=== PATIENT | female | born 1925 | race Caucasian/White ===

== ENCOUNTER 2016-12-13 16:21 | Inpatient (IN) | payer MEDICARE ==
[2016-12-13] VITALS (8 sets, daily range): BP systolic 117–219; BP diastolic 85–101; PULSE 75–92; RESP 16–20; TEMP 98.1–98.2; O2SAT 90–100
[~2016-12-13] VITALS: Ht 152.4 cm; Wt 58.9 kg
[~2016-12-13 16:21] MED LIST: ADVAI100I PO; ALBU1AER INH; ASPI81 PO; CELE200C PO; FERR325T PO; OMEP20CA5 PO; TAB-TAB PO
--- NOTE | 2016-12-13 16:51 | PD ---
HPI Chief Complaint: Respiratory Symptoms Time Seen by Provider: 16:38 Travel History International Travel<30 days: No Contact w/Intl Traveler<30days: No Traveled to known affect area: No History of Present Illness HPI This 89-year-old female presents with cough and shortness of breath. She has a history of COPD she has never smoked. She says that the last week she's been having increasing shortness of breath. It seemed to start with a cold which went to her lungs. She is on Advair and Proventil for his COPD. She has never been admitted to the hospital for her COPD. She is not on oxygen. She is not aware of any fever. She has no history of heart disease. She has really not been coughing much up feels very congested. She is not having any chest pain. She had a left hip replacement in 2008. She has chronic problems with her right leg and has to use a wheelchair. She is unable to walk PFSH Past Medical History Arthritis: Yes Asthma: Yes (as a child) Blood Disorders: No Cancer: No Cardiovascular Problems: No Diminished Hearing: No Endocrine: No GERD: Yes Genitourinary: No Hiatal Hernia: Yes Neurologic: No Psychiatric: No Reproductive: No Immunizations Current: Yes Past Surgical History Eye Surgery: Yes (anitra cataract sx retinal surgeries anitra) Other Surgery: Yes Social History Alcohol Use: Yes (occasional) Tobacco Use: No Substance Use: No Allergies-Medications (Allergen,Severity, Reaction): Coded Allergies: No Known Allergies (Verified , 12/13/16) Reported Meds & Prescriptions Reported Meds & Active Scripts Active Reported Proair Hfa 8.5 GM Inh (Albuterol Sulfate) 90 Mcg/Act Aer 1 Puff INH Q4H PRN 108 mcg/actuation Advair Diskus Inh (Fluticasone-Salmeterol Inh) 100-50 Mcg/Blist Aer 1 Puff INH BID Rinse mouth after use. Theragran-M (Multiple Vitamins W/ Minerals) 1 Tab 1 Tab PO DAILY Ferrous Sulfate 325 Mg Tab 325 Mg PO DAILY Celebrex (Celecoxib) 200 Mg Cap 200 Mg PO BID Omeprazole 20 Mg Tab 20 Mg PO DAILY Review of Systems General / Constitutional: No: Fever, Chills Eyes: No: Diploplia, Blurred Vision HENT: No: Vertigo Cardiovascular: Positive: Edema, No: Chest Pain or Discomfort, Palpitations Respiratory: Positive: Cough, Shortness of Breath, Wheezing Gastrointestinal: No: Vomiting, Diarrhea Genitourinary: No: Urgency, Frequency Musculoskeletal: Positive: Arthralgias, No: Myalgias Skin: No Rash Physical Exam Narrative GENERAL: Elderly female. She is tachypneic and in mild respiratory distress SKIN: Warm and dry. HEAD: Atraumatic. Normocephalic. EYES: Pupils equal and round. No scleral icterus. No injection or drainage. ENT: No nasal bleeding or discharge. Mucous membranes pink and moist. NECK: Trachea midline. No JVD. CARDIOVASCULAR: Regular rate and rhythm. No murmur appreciated. RESPIRATORY: There is accessory muscle use. There are bilateral expiratory rhonchi and rales. GASTROINTESTINAL: Abdomen soft, non-tender, nondistended. Hepatic and splenic margins not palpable. MUSCULOSKELETAL: No obvious deformities. No clubbing. No cyanosis. Trace edema bilaterally. SHe does have kyphoscoliosis NEUROLOGICAL: Awake and alert. No obvious cranial nerve deficits. Motor grossly within normal limits. Normal speech. PSYCHIATRIC: Appropriate mood and affect; insight and judgment normal. Data Data Last Documented VS Vital Signs Date Time Temp Pulse Resp B/P Pulse Ox O2 Delivery O2 Flow Rate FiO2 12/13/16 17:09 95 Nasal Cannula 2.00 12/13/16 16:35 98.1 79 18 219/101 Orders Complete Blood Count With Diff (12/13/16 16:46) Basic Metabolic Panel (Bmp) (12/13/16 16:46) B-Type Natriuretic Peptide (12/13/16 16:46) Magnesium (Mg) (12/13/16 16:46) Troponin I (12/13/16 16:46) Urinalysis - C+S If Indicated (12/13/16 16:46) Influenzae A/B Antigen (12/13/16 16:46) Blood Culture (12/13/16 16:46) Iv Access Insert/Monitor (12/13/16 16:46) Electrocardiogram (12/13/16 16:46) Ecg Monitoring (12/13/16 16:46) Oximetry (12/13/16 16:46) Oxygen Administration (12/13/16 16:46) Chest, Single Ap (12/13/16 16:46) Sodium Chloride 0.9% Flush (Ns Flush) (12/13/16 17:00) Methylprednisolone So Succ Inj (Solumedr (12/13/16 17:00) Albuterol-Ipratropium Neb (Duoneb Neb) (12/13/16 17:00) Labs Laboratory Tests Test 12/13/16 17:15 White Blood Count 9.3 TH/MM3 Red Blood Count 5.00 MIL/MM3 Hemoglobin 14.9 GM/DL Hematocrit 44.8 % Mean Corpuscular Volume 89.6 FL Mean Corpuscular Hemoglobin 29.8 PG Mean Corpuscular Hemoglobin 33.2 % Concent Red Cell Distribution Width 13.5 % Platelet Count 176 TH/MM3 Mean Platelet Volume 8.2 FL Neutrophils (%) (Auto) 85.2 % Lymphocytes (%) (Auto) 6.2 % Monocytes (%) (Auto) 7.9 % Eosinophils (%) (Auto) 0.2 % Basophils (%) (Auto) 0.5 % Neutrophils # (Auto) 8.0 TH/MM3 Lymphocytes # (Auto) 0.6 TH/MM3 Monocytes # (Auto) 0.7 TH/MM3 Eosinophils # (Auto) 0.0 TH/MM3 Basophils # (Auto) 0.0 TH/MM3 CBC Comment DIFF FINAL Differential Comment MDM Medical Decision Making Medical Screen Exam Complete: Yes Emergency Medical Condition: Yes Medical Record Reviewed: Yes Differential Diagnosis Differential includes pneumonia, CHF, COPD Narrative Course Chest x-ray is negative for pneumonia and CHF. She has been given 3 nebulizer treatments and Solu-Medrol. She feels a bit better but remains tachypneic with bilateral wheezes and rhonchi. Rocephin has been given. She remained short of breath and will need admission Diagnosis Primary Impression: COPD exacerbation Admitting Information Admitting Physician Requests: Admit Jam Sharp MD Dec 13, 2016 16:51
[2016-12-13] MEDS ORDERED: ADVA100A INH (16:57)
[2016-12-13] MEDS ORDERED: CELE200C PO (16:57)
[2016-12-13] MEDS ORDERED: OMEP20TA PO (16:57)
[2016-12-13] MEDS ORDERED: THERTAB27 PO (16:57)
[2016-12-13] MEDS ORDERED: ALBUAER3 INH (16:57)
[2016-12-13] MEDS ORDERED: FERR325T PO (16:57)
[2016-12-13] MEDS ORDERED: SODIUM CHLORIDE 0.9% FLUSH 5 ML FLUSH IVF PRN (17:00)
[2016-12-13] MEDS ORDERED: methylPREDNISolone SOD SUCC 125 MG/2 ML VIAL IVP ONE (17:00)
[2016-12-13] MEDS: RESP: ALBUTEROL 2.5 MG/IPRATROPIUM 0.5 MG NEB (SCH) INH ×2 (17:02→17:03)
--- NOTE | 2016-12-13 17:31 | RADHPO ---
EXAM DATE/TIME: 12/13/2016 17:05 [facility] COMPARISON: No previous studies available for comparison. INDICATIONS : Cough and congestion. MEDICAL HISTORY : Chronic obstructive pulmonary disease. SURGICAL HISTORY : None. ENCOUNTER: Initial ACUITY: 3 days PAIN SCORE: 0/10 LOCATION: Bilateral chest FINDINGS: A single view of the chest demonstrates moderate size hiatal hernia. No focal consolidation or signif icant effusion. Calcified granuloma right lung base. Advanced arthropathy in the shoulders. CONCLUSION: 1. No acute findings. Moderate hiatal hernia. Remote granulomatous disease. Guy Chua MD on December 13, 2016 at 17:29 Board Certified Radiologist. This report was verified electronically.
[2016-12-13 17:42] LABS: BASOPHIL % 0.5 % (0.0-2.0); EOSINOPHIL % 0.2 % (0.0-4.0); HEMATOCRIT 44.8 % (35.0-46.0); LYMPH % 6.2 % (9.0-44.0); LYMPHOCYTE # 0.6 TH/MM3 (1.0-4.8); MEAN CELL VOLUME 89.6 FL (80.0-100.0); MEAN CORPUSCULAR HEMOGLOBIN 29.8 PG (27.0-34.0); MEAN CORPUSCULAR HGB CONC 33.2 % (32.0-36.0); MONO % 7.9 % (0.0-8.0); NEUT % 85.2 % (16.0-70.0); PLATELET COUNT 176 TH/MM3 (150-450); RED CELL DISTRIBUTION WIDTH 13.5 % (11.6-17.2); WHITE BLOOD COUNT 9.3 TH/MM3 (4.0-11.0)
[2016-12-13 17:45] LABS: HEMO FLAGS DIFF FINAL
[2016-12-13] MEDS ORDERED: cefTRIAXone INJ 1,000 MG in SODIUM CHLORIDE 0.9% INJ 100 ML IV ONE (18:00)
[2016-12-13 18:14] LABS: BLOOD, URINE NEG (NEG); GLUCOSE,URINE NEG (NEG); KETONE, URINE 15 mg/dL (NEG); NITRITE,URINE NEG (NEG); PH, URINE 6.5 (5.0-8.5)
[2016-12-13 18:17] LABS: METHOD OF COLLECTION CATH; URINE COLOR YELLOW (YELLW/STRAW)
[2016-12-13 18:20] LABS: MUCUS URINE OCC /lpf (OCC)
[2016-12-13 18:21] LABS: RBC, URINE 0-3 /hpf (0-3)
[2016-12-13 18:26] LABS: COMMENT (UR) CULT NOT INDICATED; CULTURE IF INDICATED CULT NOT INDICATED
--- NOTE | 2016-12-13 18:28 | HHI.HP ---
HPI Service [facility] Primary Care Physician Jl Bond M.D. Admission Diagnosis COPD EXACERBATION Diagnoses: Travel History International Travel<30 Days: No Contact w/Intl Traveler <30 Da: No Traveled to Known Affected Are: No History of Present Illness This is a very pleasant 89-year-old female patient of Dr. Bond. She has brought into the emergency department at [facility]. She has a complaint of 5 days of shortness of breath, cough, wheezing, clear sputum but no fever. No chest pain. 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 She is alert and oriented. She is very sharp. She can recite the alphabet backwards without problems. She did that during this interview. She was seen in the presence of her nephew. She has a history of COPD but not on home oxygen. She uses Advair and Proventil. She denies any history of heart disease. No history of smoking. She does have a hiatal hernia and acid reflux. She denies dysphagia or choking. Review of Systems Other As above. 10 systems were reviewed and otherwise negative Past Family Social History Past Medical History Asthma Bilateral cataracts Hiatal hernia Acid reflux disease Osteoarthritis Rheumatoid arthritis Bedridden status Past Surgical History Bilateral cataract surgery Bilateral lens implant Left total hip replacement Reported Medications Reported Meds & Active Scripts Active Reported Proair Hfa 8.5 GM Inh (Albuterol Sulfate) 90 Mcg/Act Aer 1 Puff INH Q4H PRN 108 mcg/actuation Advair Diskus Inh (Fluticasone-Salmeterol Inh) 100-50 Mcg/Blist Aer 1 Puff INH BID Rinse mouth after use. Theragran-M (Multiple Vitamins W/ Minerals) 1 Tab 1 Tab PO DAILY Ferrous Sulfate 325 Mg Tab 325 Mg PO DAILY Celebrex (Celecoxib) 200 Mg Cap 200 Mg PO BID Omeprazole 20 Mg Tab 20 Mg PO DAILY Allergies: Coded Allergies: No Known Allergies (Verified , 12/13/16) Family History Reviewed but not contributory Social History No smoking, no excessive alcohol, no illicit drug use Physical Exam Vital Signs Vital Signs Date Time Temp Pulse Resp B/P Pulse Ox O2 Delivery O2 Flow Rate FiO2 12/13/16 17:09 95 Nasal Cannula 2.00 12/13/16 16:54 90 Room Air 12/13/16 16:54 92 Nasal Cannula 2 12/13/16 16:35 98.1 79 18 219/101 90 Physical Exam GENERAL: This is a very pleasant, elderly, well-nourished, well-developed patient, in no apparent distress, but repeatedly coughing and audibly wheezing. SKIN: No rashes, ecchymoses or lesions. Cool and dry. HEAD: Atraumatic. Normocephalic. No temporal or scalp tenderness. EYES: Pupils equal round and reactive. Extraocular motions intact. No scleral icterus. No injection or drainage. ENT: Nose without bleeding, purulent drainage or septal hematoma. Throat without erythema, tonsillar hypertrophy or exudate. Uvula midline. Airway patent. NECK: Trachea midline. No JVD or lymphadenopathy. Supple, nontender, no meningeal signs. CARDIOVASCULAR: Regular rate and rhythm without gallops, or rubs. Soft murmur present RESPIRATORY: Bilateral wheezes and crackles GASTROINTESTINAL: Abdomen soft, non-tender, nondistended. No hepato-splenomegaly , or palpable masses. No guarding. MUSCULOSKELETAL: Bony enlargement in both things. Arthritis changes in her fingers. Extremities without clubbing, cyanosis, or edema. No joint tenderness , effusion, or edema noted. No calf tenderness. NEUROLOGICAL: Awake and alert. Cranial nerves II through XII intact.. Normal speech. Laboratory Laboratory Tests Test 12/13/16 12/13/16 17:15 17:45 White Blood Count 9.3 Red Blood Count 5.00 Hemoglobin 14.9 Hematocrit 44.8 Mean Corpuscular Volume 89.6 Mean Corpuscular Hemoglobin 29.8 Mean Corpuscular Hemoglobin 33.2 Concent Red Cell Distribution Width 13.5 Platelet Count 176 Mean Platelet Volume 8.2 Neutrophils (%) (Auto) 85.2 Lymphocytes (%) (Auto) 6.2 Monocytes (%) (Auto) 7.9 Eosinophils (%) (Auto) 0.2 Basophils (%) (Auto) 0.5 Neutrophils # (Auto) 8.0 Lymphocytes # (Auto) 0.6 Monocytes # (Auto) 0.7 Eosinophils # (Auto) 0.0 Basophils # (Auto) 0.0 CBC Comment DIFF FINAL Differential Comment Urine Collection Type CATH Urine Color YELLOW Urine Turbidity CLEAR Urine pH 6.5 Urine Specific [place] 1.024 Urine Protein TRACE Urine Glucose (UA) NEG Urine Ketones 15 Urine Occult Blood NEG Urine Nitrite NEG Urine Bilirubin NEG Urine Leukocyte Esterase NEG Urine RBC 0-3 Urine WBC 3-5 Urine WBC Clumps Urine Mucus OCC Microscopic Urinalysis Comment CULT NOT INDICATED Date/Time Procedure Status Source Growth 12/13/16 17:45 Influenza Types A,B Antigen (SAÚL) - Final Complete Nasal Aspirate NEGATIVE FOR FLU A AND B ANTIGEN.... 12/13/16 17:15 Aerobic Blood Culture Received Blood Peripheral Pending 12/13/16 17:15 Anaerobic Blood Culture Received Blood Peripheral Pending Result Diagram: 12/13/16 1715 Imaging Last Impressions Chest X-Ray 12/13/16 1646 Signed Impressions: Service Date/Time: December 17:05 - CONCLUSION: 1. No acute findings. Moderate hiatal hernia. Remote granulomatous disease. Guy Chua MD Assessment and Plan Assessment and Plan Assessment COPD exacerbation Frequent cough Clear sputum Hiatal hernia Acid reflux Management The patient is being admitted to telemetry Supplemental oxygen IV steroids IV antibiotics Nebulizer treatment, scheduled and when necessary Continue home medications DVT prophylaxis Discussed with patient and family Discussed with emergency physician Dr. Huynh 45 minutes Uriel Baker MD Dec 13, 2016 18:28
[2016-12-13] MEDS ORDERED: ONDANSETRON HCL 4 MG/2 ML VIAL IVP PRN (18:30)
[2016-12-13] MEDS ORDERED: ACETAMINOPHEN 325 MG TAB PO PRN (18:30)
[2016-12-13] MEDS ORDERED: NALOXONE HCL 0.4 MG/ML AMP IV PRN (18:30)
[2016-12-13] MEDS ORDERED: SODIUM CHLORIDE 0.9% FLUSH 5 ML FLUSH FLUSH PRN (18:30)
[2016-12-13] MEDS ORDERED: ALBUTEROL SULFATE 90 MCG/ACT HFA 8 GM INHALER INH PRN (18:30)
[2016-12-13 18:55] LABS: CHLORIDE 97 MEQ/L (98-107); POTASSIUM 3.9 MEQ/L (3.5-5.1); SODIUM (NA) 136 MEQ/L (136-145)
[2016-12-13 18:58] LABS: ANION GAP 8 MEQ/L (5-15); BICARBONATE 30.8 MEQ/L (21.0-32.0); MAGNESIUM 1.7 MG/DL (1.5-2.5)
[2016-12-13 18:59] LABS: BLOOD UREA NITROGEN 11 MG/DL (7-18)
[2016-12-13 19:02] LABS: GLOMERULAR FILTRATION RATE 122 ML/MIN (>89)
[2016-12-13] MEDS: CELECOXIB 200 MG CAP PO SCH (21:00)
[2016-12-13] MEDS ORDERED: RESP: ALBUTEROL 2.5 MG/IPRATROPIUM 0.5 MG NEB (PRN) NEB (22:30)
[2016-12-13] MEDS ORDERED: guaiFENesin SOLUTION 200 MG/10 ML CUP PO PRN (22:30)
[2016-12-13] MEDS ORDERED: ENALAPRILAT 1.25 MG/ML VIAL IV PUSH PRN (23:30)
[2016-12-14] VITALS (8 sets, daily range): BP systolic 138–189; BP diastolic 74–96; PULSE 71–97; RESP 16–20; TEMP 97.8–98.4; O2SAT 91–95
[2016-12-14] MEDS: BUDESONIDE-FORMOTEROL 80/4.5 MCG INHALER INH SCH ×3 (00:06→21:15)
[2016-12-14] MEDS: SODIUM CHLORIDE 0.9% FLUSH 5 ML FLUSH FLUSH SCH ×3 (00:07→21:15)
[2016-12-14] MEDS: methylPREDNISolone SOD SUCC 125 MG/2 ML VIAL IV SCH ×2 (00:07→05:28)
[2016-12-14] MEDS: HEPARIN SODIUM - SQ 10,000 UNITS/ML VIAL SQ SCH ×3 (00:20→21:15)
[2016-12-14] MEDS: RESP: ALBUTEROL 2.5 MG/IPRATROPIUM 0.5 MG NEB (SCH) NEB ×4 (07:17→19:52)
[2016-12-14] MEDS ORDERED: PANTOPRAZOLE SOD 20 MG DELAYED RELEASE TAB PO SCH (09:00)
[2016-12-14] MEDS: FERROUS SULFATE 325 MG (65 MG ELEMENTAL IRON) TAB PO SCH (09:50)
[2016-12-14] MEDS: CELECOXIB 200 MG CAP PO SCH ×2 (09:50→21:00)
[2016-12-14] MEDS: MULTIVITAMINS/MINERALS THERAPEUTIC TAB PO SCH (09:51)
[2016-12-14] MEDS: AZITHROMYCIN 250 MG TAB PO SCH (09:51)
--- NOTE | 2016-12-14 11:24 | HHI.PR ---
Subjective Interval History Alert, oriented, verbal, still some cough however this has improved, no chest pain Review of Systems Constitutional Constitutional Remarks As above, 10 systems reviewed otherwise negative Vitals/Results Intake & Output 12/13/16 12/13/16 12/14/16 15:00 23:00 07:00 Intake Total 350 ml 680 ml Output Total 150 ml Balance 200 ml 680 ml Intake Oral 250 ml 680 ml IV Total 100 ml Output Urine Total 150 ml # Voids 1 3 # Bowel Movements 0 Vital Signs Vital Signs Date Time Temp Pulse Resp B/P Pulse Ox O2 Delivery O2 Flow Rate FiO2 12/14/16 08:00 97.8 88 18 152/76 93 12/14/16 07:17 92 Nasal Cannula 2.00 12/14/16 04:00 98.0 71 16 138/74 95 12/14/16 00:00 98.2 92 20 158/96 91 140/76 12/13/16 23:46 95 Nasal Cannula 2.00 12/13/16 22:46 82 16 176/92 100 Nasal Cannula 2 12/13/16 22:20 98.2 92 20 158/96 96 12/13/16 20:10 78 16 117/95 100 Nasal Cannula 2 12/13/16 19:10 75 18 189/85 91 Room Air 12/13/16 17:09 95 Nasal Cannula 2.00 12/13/16 16:54 90 Room Air 12/13/16 16:54 92 Nasal Cannula 2 12/13/16 16:35 98.1 79 18 219/101 90 CBC/BMP: 12/13/16 1715 12/13/16 1820 Lab Results Laboratory Tests Test 12/13/16 12/13/16 12/13/16 17:15 17:45 18:20 White Blood Count 9.3 TH/MM3 Red Blood Count 5.00 MIL/MM3 Hemoglobin 14.9 GM/DL Hematocrit 44.8 % Mean Corpuscular Volume 89.6 FL Mean Corpuscular Hemoglobin 29.8 PG Mean Corpuscular Hemoglobin 33.2 % Concent Red Cell Distribution Width 13.5 % Platelet Count 176 TH/MM3 Mean Platelet Volume 8.2 FL Neutrophils (%) (Auto) 85.2 % Lymphocytes (%) (Auto) 6.2 % Monocytes (%) (Auto) 7.9 % Eosinophils (%) (Auto) 0.2 % Basophils (%) (Auto) 0.5 % Neutrophils # (Auto) 8.0 TH/MM3 Lymphocytes # (Auto) 0.6 TH/MM3 Monocytes # (Auto) 0.7 TH/MM3 Eosinophils # (Auto) 0.0 TH/MM3 Basophils # (Auto) 0.0 TH/MM3 CBC Comment DIFF FINAL Differential Comment B-Type Natriuretic Peptide 56 PG/ML Urine Collection Type CATH Urine Color YELLOW Urine Turbidity CLEAR Urine pH 6.5 Urine Specific [place] 1.024 Urine Protein TRACE mg/dL Urine Glucose (UA) NEG mg/dL Urine Ketones 15 mg/dL Urine Occult Blood NEG Urine Nitrite NEG Urine Bilirubin NEG Urine Leukocyte Esterase NEG Urine RBC 0-3 /hpf Urine WBC 3-5 /hpf Urine WBC Clumps Urine Mucus OCC /lpf Microscopic Urinalysis Comment CULT NOT INDICATED Sodium Level 136 MEQ/L Potassium Level 3.9 MEQ/L Chloride Level 97 MEQ/L Carbon Dioxide Level 30.8 MEQ/L Anion Gap 8 MEQ/L Blood Urea Nitrogen 11 MG/DL Creatinine 0.48 MG/DL Estimat Glomerular Filtration 122 ML/MIN Rate Random Glucose 114 MG/DL Calcium Level 8.4 MG/DL Magnesium Level 1.7 MG/DL Troponin I LESS THAN 0.02 NG/ML Microbiology Microbiology 12/13/16 Aerobic Blood Culture, Received Pending 12/13/16 Anaerobic Blood Culture, Received Pending 12/13/16 Aerobic Blood Culture, Received Pending 12/13/16 Anaerobic Blood Culture, Received Pending 12/13/16 Influenza Types A,B Antigen (SAÚL) - Final, Complete NEGATIVE FOR FLU A AND B ANTIGEN.... Physical Exam General General Appearance: Well Developed, Well Nourished, Comfortable Eyes Eye Exam: Pupils Reactive Ears & Nose Ears & Nose Exam: Nasal Mucosa [place] Throat Throat Exam: Oral Mucosa [place] & Moist Neck Neck Exam: Trachea Midline Pulmonary Resp Exam: Crackles, Rhonchi Cardiology CV Exam: Regular, Murmur Gastrointestinal/Abdomen GI Exam: Non-Tender, Bowel Sounds Present Musculoskeletal MS Exam: Normal Tone MS Remarks Manifestations of advanced osteo and rheumatoid arthritis Integumentary Skin Exam: Intact Neurologic Neuro Exam: Awake, Oriented, Speech Clear, Moving All Extremities Psychiatric Psych Exam: Appropriate Responses VTE Prophylaxis VTE Prophylaxis Meds: Heparin Assessment/Plan Assessment/Plan Assessment COPD exacerbation, still with significant wheezing Frequent cough Clear sputum Hiatal hernia Acid reflux Management telemetry Supplemental oxygen IV steroids, slowly taper Proton pump inhibitor IV antibiotics Nebulizer treatment, scheduled and when necessary DVT prophylaxis Discussed with patient and family at her bedside 35 minutes Uriel Baker MD Dec 14, 2016 11:24
[2016-12-14] MEDS: methylPREDNISolone SOD SUCC 40 MG/1 ML VIAL IV SCH ×2 (13:09→17:41)
[2016-12-14] MEDS: cefTRIAXone INJ 1,000 MG in SODIUM CHLORIDE 0.9% INJ 100 ML IV SCH (17:41)
--- NOTE | 2016-12-14 19:48 | EKG ---
Date Performed: 12/13/2016 Time Performed: 16:57:46 PTAGE: 89 years EKG: Sinus rhythm Possible left atrial abnormality Possible anteroseptal infarct - age undetermined Abnormal ECG PREVIOUS TRACING : 11/24/2008 14.40 Compared to prior tracing no significant change DOCTOR: Kael Sauer Interpretating Date/Time 12/14/2016 19:48:32
[2016-12-14] MEDS: DOCUSATE SODIUM 100 MG CAP PO SCH (21:00)
[2016-12-15] VITALS (9 sets, daily range): BP systolic 140–174; BP diastolic 55–87; PULSE 67–89; RESP 18–24; TEMP 97.8–98.8; O2SAT 90–93
[2016-12-15] MEDS: methylPREDNISolone SOD SUCC 40 MG/1 ML VIAL IV SCH ×4 (00:30→17:26)
[2016-12-15] MEDS: RESP: ALBUTEROL 2.5 MG/IPRATROPIUM 0.5 MG NEB (SCH) NEB ×4 (07:38→19:29)
[2016-12-15] MEDS: FERROUS SULFATE 325 MG (65 MG ELEMENTAL IRON) TAB PO SCH (08:03)
[2016-12-15] MEDS: DOCUSATE SODIUM 100 MG CAP PO SCH ×2 (08:03→22:52)
[2016-12-15] MEDS: MULTIVITAMINS/MINERALS THERAPEUTIC TAB PO SCH (08:03)
[2016-12-15] MEDS: AZITHROMYCIN 250 MG TAB PO SCH (08:04)
[2016-12-15] MEDS: PANTOPRAZOLE SOD 40 MG DELAYED RELEASE TAB PO SCH (08:04)
[2016-12-15] MEDS: CELECOXIB 200 MG CAP PO SCH ×2 (08:04→22:52)
[2016-12-15] MEDS: HEPARIN SODIUM - SQ 10,000 UNITS/ML VIAL SQ SCH ×2 (08:05→22:51)
[2016-12-15] MEDS: SODIUM CHLORIDE 0.9% FLUSH 5 ML FLUSH FLUSH SCH ×2 (08:06→21:00)
[2016-12-15] MEDS: BUDESONIDE-FORMOTEROL 80/4.5 MCG INHALER INH SCH ×2 (08:06→22:51)
--- NOTE | 2016-12-15 09:10 | HHI.PR ---
Subjective Remarks 89yr old female seen and examined today. Still with SOB/wheezing. Objective Objective Results - Vital Signs Date Time Temp Pulse Resp B/P Pulse Ox O2 Delivery O2 Flow Rate FiO2 12/15/16 08:00 98.8 67 20 174/79 93 12/15/16 07:40 92 Nasal Cannula 2.00 12/15/16 04:38 67 12/15/16 04:00 98.1 89 20 155/85 92 12/15/16 00:31 98.7 82 18 140/87 93 12/14/16 20:00 98.4 91 20 152/89 91 12/14/16 19:50 93 Nasal Cannula 2.00 12/14/16 16:00 98.4 97 18 189/88 94 12/14/16 12:00 98.0 84 18 144/76 93 I/O 12/14/16 12/14/16 12/14/16 12/15/16 12/15/16 12/15/16 07:00 15:00 23:00 07:00 15:00 23:00 Intake Total 680 ml 480 ml Output Total 250 ml Balance 680 ml 480 ml -250 ml Intake Oral 680 ml 480 ml Output Urine Total 250 ml # Voids 3 4 2 # Bowel Movements 0 0 Result Diagram: 12/13/16 1715 12/13/16 1820 Imaging Last Impressions Chest X-Ray 12/13/16 1646 Signed Impressions: Service Date/Time: December 17:05 - CONCLUSION: 1. No acute findings. Moderate hiatal hernia. Remote granulomatous disease. Guy Chua MD Other Results Date/Time Procedure Status Source Growth 12/13/16 17:45 Influenza Types A,B Antigen (SAÚL) - Final Complete Nasal Aspirate NEGATIVE FOR FLU A AND B ANTIGEN.... 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 She is alert and awake. HEAD: Normocephalic without any lesion or mass noted. . EYES: Perrla, Normal eye movement, No icterus. OROPHARYNGEAL: Oropharynx without erythema or edema. MOUTH/THROAT: Moist oral mucosa. NECK: Supple.Trachea midline without deviation. CARDIAC: Regular rhythm, regular rate, S1 and S2 are heard. Murmur+ LUNGS: Clear to auscultation bilaterally. Rhonchi/wheezing. ABDOMEN: Soft, nontender, no organomegaly or masses. Bowel sounds are heard in all four quadrants. No rebound. No guarding. EXTREMITIES: RA changes+ NEUROLOGICAL: No focal deficits. SKIN:Warm and moist PSYCH: Mood and affect appropriate A/P Assessment and Plan Assessment COPD exacerbation, still with significant wheezing Frequent cough Clear sputum Hiatal hernia Acid reflux Management telemetry Supplemental oxygen IV steroids, slowly taper Proton pump inhibitor IV antibiotics Nebulizer treatment, scheduled and when necessary DVT prophylaxis Discussed with patient and family at her bedside 35 minutes Oneal Alvarado MD Dec 15, 2016 09:10
[2016-12-15] MEDS: cefTRIAXone INJ 1,000 MG in SODIUM CHLORIDE 0.9% INJ 100 ML IV SCH (17:27)
[2016-12-16] VITALS (8 sets, daily range): BP systolic 141–178; BP diastolic 60–85; PULSE 65–91; RESP 18–24; TEMP 96.4–98.9; O2SAT 90–96
[2016-12-16] MEDS: methylPREDNISolone SOD SUCC 40 MG/1 ML VIAL IV SCH ×3 (06:19→20:17)
[2016-12-16] MEDS: RESP: ALBUTEROL 2.5 MG/IPRATROPIUM 0.5 MG NEB (SCH) NEB ×4 (07:53→20:32)
--- NOTE | 2016-12-16 08:09 | HHI.PR ---
Subjective Remarks 89yr old female seen and examined today. SOB/wheezing are better. Feels weak. No fever/CP/NVD. Objective Objective Results - Vital Signs Date Time Temp Pulse Resp B/P Pulse Ox O2 Delivery O2 Flow Rate FiO2 12/16/16 07:54 90 Nasal Cannula 2.00 12/16/16 01:04 98.1 91 22 141/60 95 12/15/16 20:31 97.8 80 24 154/55 90 12/15/16 19:29 92 Nasal Cannula 2.00 12/15/16 16:00 98.7 77 24 149/70 92 12/15/16 12:00 98.4 72 20 159/79 93 I/O 12/15/16 12/15/16 12/15/16 12/16/16 12/16/16 12/16/16 07:00 15:00 23:00 07:00 15:00 23:00 Intake Total 630 ml Output Total 250 ml Balance -250 ml 630 ml Intake Oral 630 ml Output Urine Total 250 ml # Voids 2 2 2 2 # Bowel Movements 0 1 Result Diagram: 12/13/16 1715 12/13/16 1820 Imaging Last Impressions Chest X-Ray 12/13/16 1646 Signed Impressions: Service Date/Time: December 17:05 - CONCLUSION: 1. No acute findings. Moderate hiatal hernia. Remote granulomatous disease. Guy Chua MD Other Results Date/Time Procedure Status Source Growth 12/13/16 17:45 Influenza Types A,B Antigen (SAÚL) - Final Complete Nasal Aspirate NEGATIVE FOR FLU A AND B ANTIGEN.... 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 She is alert and awake. HEAD: Normocephalic without any lesion or mass noted. . EYES: Perrla, Normal eye movement, No icterus. OROPHARYNGEAL: Oropharynx without erythema or edema. MOUTH/THROAT: Moist oral mucosa. NECK: Supple.Trachea midline without deviation. CARDIAC: Regular rhythm, regular rate, S1 and S2 are heard. Murmur+ LUNGS: Clear to auscultation bilaterally. Rhonchi/wheezing. ABDOMEN: Soft, nontender, no organomegaly or masses. Bowel sounds are heard in all four quadrants. No rebound. No guarding. EXTREMITIES: RA changes+ NEUROLOGICAL: No focal deficits. SKIN:Warm and moist PSYCH: Mood and affect appropriate A/P Assessment and Plan Assessment COPD exacerbation. Frequent cough Clear sputum Hiatal hernia Acid reflux Generalized weakness Management telemetry Supplemental oxygen IV steroids: decrease to bid Proton pump inhibitor IV antibiotics Nebulizer treatment, scheduled and when necessary DVT prophylaxis consult Pt for noemy/rx. Discussed with patient/RN. 30 minutes Oneal Alvarado MD Dec 16, 2016 08:09
[2016-12-16] MEDS: DOCUSATE SODIUM 100 MG CAP PO SCH ×2 (08:40→20:17)
[2016-12-16] MEDS: MULTIVITAMINS/MINERALS THERAPEUTIC TAB PO SCH (08:41)
[2016-12-16] MEDS: FERROUS SULFATE 325 MG (65 MG ELEMENTAL IRON) TAB PO SCH (08:41)
[2016-12-16] MEDS: PANTOPRAZOLE SOD 40 MG DELAYED RELEASE TAB PO SCH (08:41)
[2016-12-16] MEDS: AZITHROMYCIN 250 MG TAB PO SCH (08:41)
[2016-12-16] MEDS: CELECOXIB 200 MG CAP PO SCH ×2 (08:41→20:17)
[2016-12-16] MEDS: SODIUM CHLORIDE 0.9% FLUSH 5 ML FLUSH FLUSH SCH ×2 (08:43→20:18)
[2016-12-16] MEDS: HEPARIN SODIUM - SQ 10,000 UNITS/ML VIAL SQ SCH ×2 (08:43→20:17)
[2016-12-16] MEDS: BUDESONIDE-FORMOTEROL 80/4.5 MCG INHALER INH SCH ×2 (08:44→20:18)
[2016-12-16] MEDS: cefTRIAXone INJ 1,000 MG in SODIUM CHLORIDE 0.9% INJ 100 ML IV SCH (17:20)
--- NOTE | 2016-12-16 20:04 | MB ---
cc: CORNELIO MI MD DATE OF CONSULTATION: 12/16/2016. REASON FOR CONSULTATION: Positive blood cultures. REQUESTING PHYSICIAN: Dr. Alvarado. HISTORY OF PRESENT ILLNESS: This is an 89-year-old white female sent to the emergency department for shortness of breath. The patient was evaluated in the emergency department for cough, wheezing and shortness of breath. She had no fever. She has a history of COPD. The initial evaluation in the emergency department included blood cultures and chest x-ray. Chest x-ray showed no acute findings. Blood cultures came back showing gram variable organisms in one of four bottles. Because of that positive culture, this infectious this consultation is requested to evaluate the patient for significance of the bacteria in the blood stream. The patient is laying in bed currently and is in no acute distress. She is awake and alert. She denies chills and has been afebrile since admission. Her only complaint currently is pain from her arthritis. She just had exercises with physical therapy and tells me that she feels a little tired from these exercises. She has no headache and no nausea or vomiting. No abdominal pain or dysuria. Urinalysis taken on admission on 12/13 was unremarkable and therefore culture was not performed. The white blood cell count has been normal. PAST MEDICAL HISTORY: 1. Rheumatoid arthritis. 2. Osteoarthritis. 3. Asthma. 4. Gastroesophageal reflux disease (GERD). 5. The patient has been wheelchair-bound for the past 1-1/2 years. 6. Hiatal hernia. 7. Bilateral cataract surgery. 8. Bilateral lens implants. 9. Left total hip replacement. ALLERGIES: NO KNOWN DRUG ALLERGIES. MEDICATIONS: 1. Protonix. 2. Methylprednisolone. 3. Colace. 4. Ceftriaxone. 5. Ferrous sulfate. 6. Theragran. 7. Zithromax. 8. Celebrex. 9. Robitussin. 10. Subcutaneous heparin. SOCIAL HISTORY: No tobacco. Occasional rare alcohol. No illicit drugs. FAMILY HISTORY: The family history is noncontributory. REVIEW OF SYSTEMS: Review of systems negative on 10-point review except for pain in the joints. GENERAL: No fevers or chills. HEAD, EYES, EARS, NOSE, THROAT: No visual blurring. No diplopia. No difficulty swallowing or soreness of the throat. The patient reports mild congestion in the throat. CARDIOVASCULAR: No palpitations or chest pain. RESPIRATORY: Significant shortness of breath. No cough or sputum production. GASTROINTESTINAL: No nausea or vomiting, abdominal pain or diarrhea. GENITOURINARY: No urgency, frequency or dysuria. HEMATOPOIETIC: No easy bruising or bleeding. MUSCULOSKELETAL: Significant for joint aches and pains. ENDOCRINE: No polyuria or polydipsia. INTEGUMENTARY: No skin rash or itching of the skin. NEUROLOGIC: No headache. PSYCHIATRIC: No problems with confusion or mood changes. The patient reports insomnia. PHYSICAL EXAMINATION: GENERAL: This is a slender female who is in no acute distress. She is alert and oriented. VITAL SIGNS: Her vital signs include temperature of 98.1, blood pressure 152/72, respirations 20, heart rate 75. HEAD, EYES, EARS, NOSE, THROAT: Head is atraumatic. Extraocular movements grossly intact. Pupils reactive to light without icterus. Oropharynx has no visible lesions. NECK: The neck is supple without adenopathy. LUNGS: Clear diminished breath sounds. HEART: Regular rate and rhythm. No murmurs, rubs or gallops. ABDOMEN: Bowel sounds present, soft, no tenderness appreciated. RECTAL: Not performed. EXTREMITIES: No clubbing or cyanosis. The patient has ulnar deviation of the fingers. SKIN: No rash. NEUROLOGIC: Grossly nonfocal. LABORATORY DATA: WBCs 9.3, platelet count 176,000, hemoglobin 14.9, 85% neutrophils. Creatinine 0.48, BUN 11, sodium 136. IMPRESSION: Positive blood culture with gram-variable organism in one bottle of four. The patient is clinically without evidence suggesting sepsis. No clear foci for septicemia at this point. I think that the positive blood culture is most certainly contamination of the blood culture and therefore I do not see any need to treat for the organism in the blood stream. She is being treated for COPD and this treatment can be continued as you are doing; however, no antibiotics are recommended for the blood culture. Thank you for this consultation. If further input is needed, re-consult can be ordered. Cornelio Mi MD FD/SHY /4:04 PM /6:50 PM
[2016-12-17] VITALS (8 sets, daily range): BP systolic 144–162; BP diastolic 68–78; PULSE 62–89; RESP 16–18; TEMP 95.9–98.1; O2SAT 92–98
[2016-12-17] MEDS: RESP: ALBUTEROL 2.5 MG/IPRATROPIUM 0.5 MG NEB (SCH) NEB ×4 (07:44→19:34)
[2016-12-17] MEDS: HEPARIN SODIUM - SQ 10,000 UNITS/ML VIAL SQ SCH ×2 (08:25→21:13)
[2016-12-17] MEDS: BUDESONIDE-FORMOTEROL 80/4.5 MCG INHALER INH SCH ×2 (08:28→21:16)
[2016-12-17] MEDS: DOCUSATE SODIUM 100 MG CAP PO SCH ×2 (08:29→21:16)
[2016-12-17] MEDS: MULTIVITAMINS/MINERALS THERAPEUTIC TAB PO SCH (08:29)
[2016-12-17] MEDS: FERROUS SULFATE 325 MG (65 MG ELEMENTAL IRON) TAB PO SCH (08:29)
[2016-12-17] MEDS: AZITHROMYCIN 250 MG TAB PO SCH (08:29)
[2016-12-17] MEDS: CELECOXIB 200 MG CAP PO SCH ×2 (08:29→21:17)
[2016-12-17] MEDS: PANTOPRAZOLE SOD 40 MG DELAYED RELEASE TAB PO SCH (08:29)
[2016-12-17] MEDS: methylPREDNISolone SOD SUCC 40 MG/1 ML VIAL IV SCH ×2 (08:31→21:16)
[2016-12-17] MEDS: SODIUM CHLORIDE 0.9% FLUSH 5 ML FLUSH FLUSH SCH ×2 (08:33→21:14)
--- NOTE | 2016-12-17 08:51 | HHI.PR ---
Subjective History of Present Illness pt is seen & Examined chart Reviewed still SOB , though much better than before less coughing still wheezing No fever or chills appetite is ok No abd pain ch wheel chair bound , was able to transfer for bed to wheelchair hoping to go home & refusing SNF offers no other c/o Vitals/Results Intake & Output 12/16/16 12/16/16 12/17/16 15:00 23:00 07:00 Intake Total 870 ml 80 ml Balance 870 ml 80 ml Intake Oral 870 ml 80 ml # Voids 3 3 # Bowel Movements 0 Vital Signs Vital Signs Date Time Temp Pulse Resp B/P Pulse Ox O2 Delivery O2 Flow Rate FiO2 12/17/16 07:46 95 Nasal Cannula 3.00 12/17/16 04:00 95.9 68 18 162/78 98 12/17/16 00:00 96.5 70 18 144/75 96 12/17/16 00:00 96.5 70 18 144/75 96 12/16/16 20:33 95 Nasal Cannula 3.00 12/16/16 20:00 98.2 76 18 155/64 96 12/16/16 20:00 68 12/16/16 16:00 98.3 68 20 147/73 96 12/16/16 12:00 96.4 76 20 155/85 93 12/16/16 11:29 94 Nasal Cannula 3.00 CBC/BMP: 12/13/16 1715 12/13/16 1820 Physical Exam General General Appearance: Comfortable, Malnourished Appearance Remarks frail elderly [place] Eyes Eye Exam: Pupils Equal, Sclera White, Extraocular Movement Intact Ears & Nose Ears & Nose Exam: Nasal Mucosa [place] Throat Throat Exam: Oral Mucosa [place] & Moist Neck Neck Exam: Neck Supple, Trachea Midline Pulmonary Resp Exam: Breath Sounds Equal, No Distress, Rhonchi Cardiology CV Exam: Regular, Normal Sinus Rhythm, Murmur Gastrointestinal/Abdomen GI Exam: Soft, Non-Tender, Bowel Sounds Present Musculoskeletal MS Exam: Normal Tone Integumentary Skin Exam: Dry, Intact Extremeties Extremities Exam: No Edema Neurologic Neuro Exam: Alert, Awake, Oriented, Speech Clear, Moving All Extremities Psychiatric Psych Exam: Appropriate Responses VTE Prophylaxis VTE Prophylaxis Meds: Heparin PUD Prophylasis PUD Prophylaxis: Protonix Assessment/Plan Assessment/Plan Assessment COPD exacerbation, still with significant wheezing Frequent cough Clear sputum Hiatal hernia Acid reflux DDD DJD Management telemetry Supplemental oxygen d/c IV Rocephin , start po ceftin Taper IV steroids, Aerosol tx cont current tx Proton pump inhibitor sq heparin/ DVT prophylaxis Discussed with patient and family at her bedside pt meets Inpatient Criteria/ she is still needing IV steroids aerosol tx / advance age /poor health . without appropriate treatment she may develop respiratory failure / associated complications. Expected LOS is 4 days , possible d/c home w [facility] . 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
[2016-12-17] MEDS ORDERED: MAGNESIUM HYDROXIDE SUSP 30 ML CUP PO PRN (09:45)
[2016-12-17] MEDS: CEFUROXIME AXETIL 500 MG TAB PO SCH (21:17)
[2016-12-18] VITALS: BP 151/81; PULSE 71; RESP 18; TEMP 98.8; O2SAT 95
[2016-12-18 04:00] VITALS: BP 169/90; PULSE 64; RESP 16; TEMP 98.2; O2SAT 93
[2016-12-18 06:14] VITALS: PULSE 67
[2016-12-18] MEDS: RESP: ALBUTEROL 2.5 MG/IPRATROPIUM 0.5 MG NEB (SCH) NEB (07:24)
[2016-12-18 07:28] VITALS: O2SAT 92
[2016-12-18 08:00] VITALS: BP 168/72; PULSE 62; RESP 20; TEMP 96.9; O2SAT 91
[2016-12-18] MEDS: SODIUM CHLORIDE 0.9% FLUSH 5 ML FLUSH FLUSH SCH (09:03)
[2016-12-18] MEDS: BUDESONIDE-FORMOTEROL 80/4.5 MCG INHALER INH SCH (09:04)
[2016-12-18] MEDS: HEPARIN SODIUM - SQ 10,000 UNITS/ML VIAL SQ SCH (09:04)
[2016-12-18] MEDS: CEFUROXIME AXETIL 500 MG TAB PO SCH (09:05)
[2016-12-18] MEDS: DOCUSATE SODIUM 100 MG CAP PO SCH (09:05)
[2016-12-18] MEDS: MULTIVITAMINS/MINERALS THERAPEUTIC TAB PO SCH (09:05)
[2016-12-18] MEDS: CELECOXIB 200 MG CAP PO SCH (09:05)
[2016-12-18] MEDS: FERROUS SULFATE 325 MG (65 MG ELEMENTAL IRON) TAB PO SCH (09:05)
[2016-12-18] MEDS: PANTOPRAZOLE SOD 40 MG DELAYED RELEASE TAB PO SCH (09:05)
[2016-12-18] MEDS: methylPREDNISolone SOD SUCC 40 MG/1 ML VIAL IV SCH (09:05)
[2016-12-18] MEDS: AZITHROMYCIN 250 MG TAB PO SCH (09:05)
[2016-12-18 12:00] VITALS: BP 160/74; PULSE 68; RESP 18; TEMP 97.2; O2SAT 92
--- NOTE | 2016-12-18 14:43 | HHI.PR ---
Subjective Interval History Alert, verbal, occasional cough, feels weaker, no fever, no wheezing Review of Systems Constitutional Constitutional Remarks As above, 10 systems reviewed otherwise negative Vitals/Results Intake & Output 12/17/16 12/17/16 12/18/16 15:00 23:00 07:00 Intake Total 244 ml 760 ml 180 ml Output Total 1 ml Balance 243 ml 760 ml 180 ml Intake Oral 240 ml 760 ml 180 ml IV Total 4 ml Stool Total 1 ml # Voids 1 4 1 # Bowel Movements 0 0 Vital Signs Vital Signs Date Time Temp Pulse Resp B/P Pulse Ox O2 Delivery O2 Flow Rate FiO2 12/18/16 12:00 97.2 68 18 160/74 92 12/18/16 08:00 96.9 62 20 168/72 91 12/18/16 07:28 92 Nasal Cannula 3.00 12/18/16 06:14 67 12/18/16 04:00 98.2 64 16 169/90 93 12/18/16 00:00 98.8 71 18 151/81 95 12/17/16 20:00 85 12/17/16 20:00 98.1 89 18 150/68 96 12/17/16 19:34 92 Nasal Cannula 3.00 12/17/16 16:00 98.0 79 16 157/75 94 Physical Exam General General Appearance: Comfortable, Malnourished Eyes Eye Exam: Pupils Equal, Sclera White, Extraocular Movement Intact Ears & Nose Ears & Nose Exam: Nasal Mucosa [place] Throat Throat Exam: Oral Mucosa [place] & Moist Neck Neck Exam: Neck Supple, Trachea Midline Pulmonary Resp Exam: Breath Sounds Equal, No Distress Cardiology CV Exam: Regular, Normal Sinus Rhythm, Murmur Gastrointestinal/Abdomen GI Exam: Soft, Non-Tender, Bowel Sounds Present Musculoskeletal MS Exam: Normal Tone MS Remarks Manifestations of advanced osteo and rheumatoid arthritis Integumentary Skin Exam: Dry, Intact Extremeties Extremities Exam: No Edema Neurologic Neuro Exam: Alert, Awake, Oriented, Speech Clear, Moving All Extremities Psychiatric Psych Exam: Appropriate Responses VTE Prophylaxis VTE Prophylaxis Meds: Heparin PUD Prophylasis PUD Prophylaxis: Protonix Assessment/Plan Assessment/Plan Assessment COPD exacerbation, improved, wheezing resolved less Frequent cough Reactive airway disease deconditioning Hiatal hernia Acid reflux DDD DJD Management Discharge to long-term facility Supplemental oxygen as needed po ceftin Prednisone taper Aerosol tx Discussed with patient and family at her bedside d/w nurse Discharge Minutes: 40 Uriel Baker MD Dec 18, 2016 14:43 Uriel Bkaer MD Dec 18, 2016 14:43
[2016-12-18] MEDS ORDERED: CEFT500T3 PO (14:59)
[2016-12-18] MEDS ORDERED: PRED10PA PO (14:59)
== END 2016-12-18 16:31 | DRG 192 ==
LOC: PHEFT 16:21 → PHEDA 17:59 → INTOOBSV 17:59 → PH3A 22:34 → OBSVTOIN 12-17 09:36
PROVIDERS: ADMIT Specialist; ATTEND Specialist
DX: J44.1 Chronic obstructive pulmonary disease with (acute) exacerbation (principal); M06.9 Rheumatoid arthritis, unspecified; K21.9 Gastro-esophageal reflux disease without esophagitis; Z99.3 Dependence on wheelchair; M19.90 Unspecified osteoarthritis, unspecified site; R53.81 Other malaise
CPT/HCPCS: 71010; 80048; 81001; 83735; 83880; 84484; 85025; 87040; 87077; 87153; 87205; 87804; 93005; 94620; 94640; 94664; 96374; G0378; G8987-GP; G8988-GP; J0696; J1644; J2920; J2930